=== PATIENT | male | born 1945 | race Caucasian/White ===

== ENCOUNTER 2020-09-04 08:25 | Day surgery (SDC) | payer MEDICARE, OTHER ==
[~2020-09-04] VITALS: Ht 185.4 cm; Wt 110.5 kg
[~2020-09-04 08:25] MED LIST: ASMANEX220 MC1 INH; ASPIRIN EC81 MG PO; BUPROPION HCL200 MG PO; CRESTOR10 MG PO; LEVOTHYROXINE88 MCG PO; OMEGA 3 1,0001 EACH PO; OMEPRAZOLE20 MG PO; PROAIR HFA8.5 GM INH; SIMVASTATIN20 MG PO; SPIRIVA18 MCG INH; VITAMIN D35000 UNIT PO; WIXELA 500-501 EACH INH
--- NOTE | 2020-09-04 09:55 | NUR ---
09/04/20 0955 Randa Gallardo 0222-PATIENT ARRIVED TO PACU ON 2L NC RR EVEN. PATIENT VERY DROWSY REACTIVE TO VERBAL AND TACTILE STIMULI. PATIENT IMMEDIATELY FALLS BACK ASLEEP. HOB ELEVATED. ABDOMEN SOFT. IVF INFUSING.
--- NOTE | 2020-09-04 10:45 | NUR ---
PATIENT BACK IN DAY SURGERY ROOM FROM PACU. PATIENT DROWSY, UNABLE TO STAY AWAKE. VS CHECKED. IV SITE WNL. PATIENT RESTING. AT BEDSIDE. CALL LIGHT WITHIN REACH.
--- NOTE | 2020-09-04 15:23 | NUR ---
1130: PATIENT AWAKE. DISCHARGE INSTRUCTIONS GIVEN. VS CHECKED. IV DC'D WNL. TIP INTACT. DRESSING APPLIED. PATIENT DISCHARGE TO HOME WITH VIA WHEELCHAIR.
--- NOTE | 2020-09-05 07:43 | OR ---
[facility] [address], [place] [address] Signed DATE OF OPERATION: 09/04/2020 SURGEON: Antonieta Venegas MD PREOPERATIVE DIAGNOSES: 1. Personal history of hyperplastic colonic polyps in 2007 and 2013. 2. Diverticulosis. 3. Internal hemorrhoids. 4. Mother with colonic polyps in her late 60s. POSTOPERATIVE DIAGNOSES: 1. Minimal right-sided diverticulosis. 2. Moderate left-sided diverticulosis. 3. 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 4. 4 mm polyps at 20 cm/sigmoid colon. 5. 4 mm polyp at 35 cm/sigmoid colon. 6. 4 mm polyp at 15 cm/rectum. 7. Minimal internal hemorrhoids. PROCEDURE: Colonoscopy with hot biopsy. ESTIMATED BLOOD LOSS: None. INDICATIONS: Dejan is a 75-year-old gentleman asked to see me for followup colonoscopy. He has had hyperplastic polyps out in 2007 and 2013. He is also known to have diverticulosis and internal hemorrhoids. His mother has had colonic polyps removed in her late 60s. She returns every few years for repeat colonoscopy. Dejan has always done well with Versed and fentanyl in the past. He has no lower GI complaints currently. He said he is now retired. I had met with Dejan in our office. I gave him a pamphlet on colonoscopy. He remembers the test quite well. He understands there is risk including, but not limited to gas bloating, crampy abdominal pain, bleeding, perforation requiring surgery, and missed diagnosis. He also understands the need for IV conscious sedation. He had expressed understanding and wished to proceed. PROCEDURE NOTE: Dejan was taken into our endoscopy suite and placed in the left lateral decubitus position. He was given a total of 10 mg of Versed and 200 mcg fentanyl to cover the Electronically Signed By: ANTONIETA VENEGAS MD 09/05/20 0743 PATIENT NAME: DEJAN RAMIREZ OPERATIVE REPORT DATE OF : 49 REPORT #: [id number] PHYSICIAN: ANTONIETA VENEGAS MD PCP: LEOBARDO BARRERA REPORT IS CONFIDENTIAL AND NOT TO BE RELEASED WITHOUT AUTHORIZATION [facility] [address], [place] [address] Signed case. He was a little awake and moaning during parts of the procedure. We went back and looked in, he apparently has a drink of alcohol every day. In the future, he might consider propofol infusion with monitored anesthesia care. A digital rectal exam was performed and of course, he has a moderately indurated and swollen prostate gland. He has good sphincter tone. The adult colonoscope had been introduced and advanced under direct visualization of camera. It took a few minutes to get through the sigmoid colon. It took extra sedation and abdominal compression in order to advance the scope and then it took a while to get over the hepatic flexure and then finally down into the cecum itself. We had to continue to re-dose his Versed and fentanyl. His prep was quite good. We could easily see the appendiceal orifice and the ileocecal valve. The scope was then slowly withdrawn. We took pictures throughout for photodocumentation. On this occasion, he appears to have some mild melanosis coli throughout the entire colon. We went ahead and took a biopsy of the right colon for pathologic review in that regard. Once again, he has a few diverticula in the right colon and moderate diverticula in the left colon. They were moderate in size, moderate in number, and scattered about. The above-mentioned polyps were easily removed with the help of hot biopsy forceps. Upon retroflexion of scope, he has minimal internal hemorrhoids. After this, the gas was suctioned out and the colonoscope removed. Overall, Dejan tolerated the procedure well. RECOMMENDATIONS: I will see Dejan back in my office in 7 to 14 days to review his results. He might consider propofol infusion for his next endoscopy in 5 years if he has recall of this occasion. Antonieta Venegas MD [facility] /[id number] cc: [facility] Antonieta Venegas MD Copies: ANTONIETA VENEGAS MD Electronically Signed By: ANTONIETA VENEGAS MD 09/05/20 0743 PATIENT NAME: DEJAN RAMIREZ OPERATIVE REPORT DATE OF : 49 REPORT #: [id number] PHYSICIAN: ANTONIETA VENEGAS MD PCP: LEOBARDO BARRERA REPORT IS CONFIDENTIAL AND NOT TO BE RELEASED WITHOUT AUTHORIZATION [address] [address] Signed ~ Electronically Signed By: ANTONIETA VENEGAS MD 09/05/20 0743 PATIENT NAME: DEJAN RAMIREZ OPERATIVE REPORT DATE OF : 49 REPORT #: [id number] PHYSICIAN: ANTONIETA VENEGAS MD PCP: LEOBARDO BARRERA REPORT IS CONFIDENTIAL AND NOT TO BE RELEASED WITHOUT AUTHORIZATION
--- NOTE | 2020-09-05 14:12 | PATH ---
[facility] [address] [facility] [place], [place] [address] Signed SPECIMEN(S): A SIGMOID POLYP 20 CM SPECIMEN(S): B COLON POLYP 35 SPECIMEN(S): C COLON BIOPSY SPECIMEN(S): D COLON POLYP AT 15 CM SPECIMEN SOURCE: A. SIGMOID POLYP 20 CM B. COLON POLYP 35 C. COLON BIOPSY D. COLON POLYP AT 15 CM CLINICAL HISTORY: Preop/postop diagnoses: History of polyps; diverticulosis; internal hemorrhoids. C) Rule out melanosis coli. MICROSCOPIC DESCRIPTION: Histologic sections of all submitted blocks are examined by light microscopy. These findings, together with the gross examination, support the pathologic diagnosis. FINAL PATHOLOGIC DIAGNOSIS: A. Sigmoid polyp 20 cm, biopsy: - Hyperplastic polyp (one fragment). B. Coon polyp at 35 cm, biopsy: - Polypoid fragment of benign colonic mucosa with focal slight hyperplastic features. C. Colon, biopsy: - Benign colonic mucosa, negative for specific diagnostic abnormality. D. Colon polyp at 15 cm, biopsy: - Hyperplastic polyp (one fragment). JVR:cml:[id number] GROSS DESCRIPTION: Four specimens are received in four containers, labeled "WR." A. The specimen, labeled "WR, sigmoid colon polyp at 20 cm," is received in formalin and consists of one barba soft tissue fragment that measures 0.2 cm in greatest dimension. The specimen is entirely submitted in cassette (A1). B. The specimen, labeled "WR, colon polyp at 35 cm," is received in formalin and consists of two barba soft tissue fragments that measure 0.2 cm in greatest dimension. The specimen is entirely submitted in cassette (B1). PATIENT NAME: KANDACE RAMIREZ PATHOLOGY DATE OF : 49 REPORT #: [id number] PHYSICIAN: HEATHER BUSTOS PCP: LEOBARDO BARRERA REPORT IS CONFIDENTIAL AND NOT TO BE RELEASED WITHOUT AUTHORIZATION [facility] [address] [place], [place] [address] Signed C. The specimen, labeled "WR, melanosis coli biopsy," is received in formalin and consists of one barba soft tissue fragment that measures 0.2 cm in greatest dimension. The specimen is entirely submitted in cassette (C1). D. The specimen, labeled "WR, colon polyp at 15 cm," is received in formalin and consists of one barba soft tissue fragment that measures 0.2 cm in greatest dimension. The specimen is entirely submitted in cassette (D1). JS (under the direct supervision of a pathologist) The Gross Description was prepared using a voice recognition system. The report was reviewed for accuracy; however, sound-alike word errors, addition and/or deletions may occur. If there is any question about this report, please contact Client Services. PERFORMING LABORATORY: The technical component was performed by [facility], [address] [place] [id number] ([employer] Grower: Arline Flores MD; CLIA# [id number]). Professional interpretation was performed by [facility] [address]. Diagnostician: Dc Barajas MD Pathologist Electronically Signed 09/05/2020 Copies: ~ PATIENT NAME: KANDACE RAMIREZ PATHOLOGY DATE OF : 49 REPORT #: [id number] PHYSICIAN: HEATHER PATHOLOGY PCP: LEOBARDO BARRERA REPORT IS CONFIDENTIAL AND NOT TO BE RELEASED WITHOUT AUTHORIZATION
== END 2020-09-04 11:27 | disposition home or self-care (01) ==
LOC: OPS 08:25 → DS 08:31 → OPS 09:45 → DS 09:45 → OPS 11:27
PROVIDERS: ATTEND Colon & Rectal Surgery
PROC: 0DBL8ZX Excision of Transverse Colon, Via Natural or Artificial Opening Endoscopic, Diagnostic (ICD-10-PCS; 2020-09-04)
PROC: 0DBH8ZX Excision of Cecum, Via Natural or Artificial Opening Endoscopic, Diagnostic (ICD-10-PCS; 2020-09-04)
PROC: 0DBK8ZX Excision of Ascending Colon, Via Natural or Artificial Opening Endoscopic, Diagnostic (ICD-10-PCS; principal; 2020-09-04 09:45)
DX: K57.30 Diverticulosis of large intestine without perforation or abscess without bleeding (principal); K63.5 Polyp of colon; K62.1 Rectal polyp; K63.89 Other specified diseases of intestine; K64.0 First degree hemorrhoids; E66.9 Obesity, unspecified; Z68.32 Body mass index [BMI] 32.0-32.9, adult; J44.9 Chronic obstructive pulmonary disease, unspecified; E78.5 Hyperlipidemia, unspecified; E03.9 Hypothyroidism, unspecified; Z88.8 Allergy status to other drugs, medicaments and biological substances; Z83.71 Family history of colonic polyps; Z86.010 Personal history of colon polyps
CPT/HCPCS: 99153; G0500; J2250; J3010; J7121

== ENCOUNTER 2024-05-05 10:50 | Emergency (ER) | payer MEDICARE, OTHER ==
[~2024-05-05] VITALS: Ht 185.4 cm; Wt 108.9 kg
[2024-05-05 11:23] LABS: HEMATOCRIT 44.3 % (35.0-50.0); HEMOGLOBIN 14.9 g/dL (12.0-18.0); MCH 30.6 (27-36); MCHC 33.6 g/dl (30-36); MCV 91.1 fl (81-99); MONOCYTES 7.5 % (0-12); NEUTROPHILS 55.5 % (39-80); PLATELET COUNT 281 K/uL (140-440); RBC 4.87 M/ul (4.3-5.7); RDW 13.8 (10.5-15.0)
[2024-05-05] MEDS ORDERED: HYDROmorphone HCL 1 MG/ML SYR IV ONE (11:30)
[2024-05-05] MEDS ORDERED: methylPREDNISolone SOD SUCC 125 MG/2 ML VIAL IV ONE (11:30)
[2024-05-05] MEDS ORDERED: ondansetron HCL 4 MG/2 ML VIAL IV ONE (11:30)
[2024-05-05] MEDS ORDERED: ALBUTEROL/IPRATROPIUM 3 ML NEB INH ONE (11:30)
[2024-05-05 11:39] LABS: ALBUMIN 3.7 g/dL (3.4-5.0); ALBUMIN/GLOBULIN RATIO 0.86 (1.1-2.4); ANION GAP 9.9 (7-21); BILIRUBIN, TOTAL 0.6 ng/dL (0.2-1.0); BUN/CREATININE RATIO 11.34 (6.0-28.6); CALCIUM 9.3 mg/dL (8.5-10.1); CREATININE, SERUM 1.41 mg/dL (0.70-1.30); POTASSIUM 3.9 mmol/L (3.5-5.1)
[2024-05-05 12:00] LABS: INFLUENZA B NAA NEGATIVE (NEGATIVE); RESPIRATORY SYNCYTIAL VIR NAA NEGATIVE (NEGATIVE)
[2024-05-05 13:29] LABS: BILIRUBIN, URINE NEGATIVE (negative); BLOOD/HGB, URINE NEGATIVE (Negative); KETONE, URINE NEGATIVE (Negative); LEUK ESTERASE, URINE NEGATIVE (negative); NITRITE, URINE NEGATIVE (negative)
[2024-05-05 13:35] LABS: RED BLOOD CELLS, URINE 0-1 /hpf (0-5)
[2024-05-05 13:36] LABS: BACTERIA, URINE RARE /hpf (negative); CASTS, URINE NONE SEEN \\lpf; COLLECTION TYPE, URINE CLEAN CATCH; CRYSTALS, URINE NONE SEEN (0-1+); EPITHELIAL CELLS, URINE SQUAMOUS 1+ /lpf (0-1+); REFLEX CULTURE, URINE No (No)
[2024-05-05] MEDS ORDERED: PREDNISONE20 MG PO (14:24)
[2024-05-05 14:41] VITALS: BP 143/66
== END 2024-05-05 14:49 | disposition home or self-care (01) ==
LOC: ED 10:50
PROVIDERS: Emergency Medicine
DX: R10.30 Lower abdominal pain, unspecified (principal); R06.2 Wheezing; E03.9 Hypothyroidism, unspecified; Z87.891 Personal history of nicotine dependence; Z88.8 Allergy status to other drugs, medicaments and biological substances; Z79.82 Long term (current) use of aspirin; Z79.890 Hormone replacement therapy; Z79.51 Long term (current) use of inhaled steroids; Z79.899 Other long term (current) drug therapy
CPT/HCPCS: 36415; 71045; 74176; 80053; 81001; 83690; 85025; 87502; 96374; 96375; 99284-25; J1171; J2405; J2919; U0002

== ENCOUNTER 2024-05-31 18:42 | Emergency (ER) | payer MEDICARE, OTHER ==
[~2024-05-31] VITALS: Ht 185.4 cm; Wt 108.9 kg
[~2024-05-31 18:42] MED LIST changes: +PREDNISONE20 MG PO
--- OUTSIDE RECORDS SUMMARY | 2024-05-31 18:48 | XMS ---
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 Tami has no Care Guidelines for this patient. Isaías V[facility] COUNT (12 MO.) [facility] NOTE: Visits indicate total known visits. [place] (12 MO.) [facility] COMPLAINT: - SHORTNESS OF BREATH 05/05/2024 10:[address] [facility] TYPE: Emergency COMPLAINT: - ABDOMINAL PAIN DIAGNOSES: - Allergy status to other drugs, medicaments and biological substances - Hormone replacement therapy - Hypothyroidism, unspecified - correction (current) use of aspirin - correction (current) use of inhaled steroids - Lower abdominal pain, unspecified - Other halfway (current) drug therapy - Personal history of nicotine dependence - Wheezing INPATIENT VISIT TRACKING (12 MO.) No inpatient visits to display in this time frame [email or web address]
[2024-05-31] MEDS ORDERED: ALBUTEROL/IPRATROPIUM 3 ML NEB INH PRN (19:00)
[2024-05-31 19:05] LABS: HEMATOCRIT 45.5 % (35.0-50.0); RDW 14.3 (10.5-15.0)
[2024-05-31 19:08] LABS: BASOPHILS 1.2 % (0-2); EOSINOPHILS 7.5 % (0-6); HEMOGLOBIN 15.1 g/dL (12.0-18.0); LYMPHOCYTES 30.9 % (24-44); MCH 30.5 (27-36); MCHC 33.1 g/dl (30-36); MCV 92.1 fl (81-99); NEUTROPHILS 52.4 % (39-80); PLATELET COUNT 318 K/uL (140-440); RBC 4.94 M/ul (4.3-5.7)
[2024-05-31 19:22] LABS: ALBUMIN 3.8 g/dL (3.4-5.0); ANION GAP 14.9 (7-21); BILIRUBIN, TOTAL 0.6 ng/dL (0.2-1.0); BUN/CREATININE RATIO 10.13 (6.0-28.6); CALCIUM 9.2 mg/dL (8.5-10.1); CREATININE, SERUM 1.48 mg/dL (0.70-1.30); MAGNESIUM 1.9 mg/dL (1.8-2.4); POTASSIUM 3.9 mmol/L (3.5-5.1); PROTEIN, TOTAL 7.6 g/dL (6.4-8.2)
[2024-05-31 19:40] LABS: CORONAVIRUS COVID-19 AG NEGATIVE (NEGATIVE); INFLUENZA A AG NEGATIVE (NEGATIVE); INFLUENZA B AG NEGATIVE (NEGATIVE)
[2024-05-31] MEDS ORDERED: ASPIRIN 81 MG CHEW PO ONE (19:45)
[2024-05-31] MEDS ORDERED: methylPREDNISolone SOD SUCC 125 MG/2 ML VIAL IV ONE (21:00)
[2024-05-31] MEDS ORDERED: PREDNISONE20 MG PO (21:03)
[2024-05-31 21:09] VITALS: BP 153/68
--- NOTE | 2024-06-01 21:15 | EKG ---
[facility] [address] [facility] [place] [address] Signed Normal sinus rhythm Normal ECG When compared with ECG of 04-APR-2019 09:26, No significant change was found Confirmed by Angie Guy DO ([id number]) on 06/01/2024 9:14:55 PM Electronically Signed By: ANGIE GUY DO 06/01/242114 PATIENT NAME: KANDACE RAMIREZ Electrocardiogram DATE OF : 49 PHYSICIAN: ANGIE GUY DO REPORT #: [id number] REPORT IS CONFIDENTIAL AND NOT TO BE RELEASED WITHOUT AUTHORIZATION
== END 2024-05-31 21:16 | disposition home or self-care (01) ==
LOC: ED 18:42
PROVIDERS: Internal Medicine
DX: J06.9 Acute upper respiratory infection, unspecified (principal); R79.89 Other specified abnormal findings of blood chemistry; J44.89 Other specified chronic obstructive pulmonary disease; E03.9 Hypothyroidism, unspecified; Z87.891 Personal history of nicotine dependence; Z88.8 Allergy status to other drugs, medicaments and biological substances; Z79.82 Long term (current) use of aspirin; Z79.890 Hormone replacement therapy; Z79.51 Long term (current) use of inhaled steroids; Z79.899 Other long term (current) drug therapy
CPT/HCPCS: 36415; 71045; 80053; 83690; 83735; 83880; 84484; 85025; 93005; 93010; 94640; 96374; 99285-25; A9270; J2919

== ENCOUNTER 2025-02-23 01:24 | Emergency (ER) | payer MEDICARE, OTHER ==
[~2025-02-23] VITALS: Ht 185.4 cm; Wt 105.2 kg
[2025-02-23] MEDS ORDERED: ALBUTEROL/IPRATROPIUM 3 ML NEB INH ONE (01:45)
[2025-02-23 01:50] LABS: BASOPHILS 1.0 % (0.2-1.2); EOSINOPHILS 4.9 % (0.8-7.0); LYMPHOCYTES 35.1 % (21.8-53.1); MCH 30.6 PG (25.7-32.2); MCHC 33.7 g/dL (32.3-36.5); MCV 90.7 fL (79.0-92.2); MONOCYTES 8.1 % (5.3-12.2); NEUTROPHILS 50.5 % (34.0-67.9); RBC 4.84 M/uL (4.63-6.08)
[2025-02-23 01:59] LABS: ALT (SGPT) 33.0 U/L (14-59); AST (SGOT) 26.0 U/L (15-37); GLOMERULAR FILTRATION RATE,EST 53.0 mL/min (>60); PROTEIN, TOTAL 7.9 g/dL (6.4-8.2); UREA NITROGEN 20.0 mg/dL (7-18)
[2025-02-23] MEDS ORDERED: HYDROCODON-ACE1 EA10 PO (03:06)
[2025-02-23 03:15] VITALS: BP 147/52
[2025-02-23] MEDS ORDERED: HYDROCODONE BIT/ACETAMINOPHEN 5/325 MG 1 TAB HOME.PACK PO PRN (03:15)
== END 2025-02-23 03:16 | disposition home or self-care (01) ==
LOC: ED 01:24
PROVIDERS: Emergency Medicine
DX: R10.84 Generalized abdominal pain (principal); Z88.1 Allergy status to other antibiotic agents; Z88.8 Allergy status to other drugs, medicaments and biological substances; Z79.82 Long term (current) use of aspirin; Z79.899 Other long term (current) drug therapy
CPT/HCPCS: 36415; 74177; 80053; 83690; 85025; 94640; 99284-25; A9270; Q9967